=== PATIENT | female | born 1940 | race Caucasian/White ===

== ENCOUNTER 2021-06-17 09:57 | Emergency (ER) | payer OTHER ==
[~2021-06-17] VITALS: Ht 160 cm; Wt 52.0 kg
[2021-06-17] MEDS ORDERED: ondansetron/PF 4mg/2ml inj IV ONE ×3 (10:25→14:55)
[2021-06-17] MEDS ORDERED: normal saline 1000ML IV soln IVB ONE (10:25)
[2021-06-17 10:39] LABS: ALANINE AMINOTRANSFERASE 15 U/L (12-78); ALBUMIN 3.6 G/DL (3.4-5.0); ALBUMIN/GLOBULIN RATIO 0.9 (1.1-1.5); ALKALINE PHOSPHATASE 102 IU/L (46-116); ANION GAP 9 (8-16); ASPARTATE AMINO TRANSFERASE 22 U/L (10-37); BILIRUBIN,TOTAL 0.4 MG/DL (0.1-1.0); BLOOD UREA NITROGEN 16 MG/DL (7-18); BUN/CREATININE RATIO 20.8 (6.6-38.0); CALCIUM 9.3 MG/DL (8.5-10.1); CHLORIDE 104 MMOL/L (99-107); CREATININE 0.77 MG/DL (0.40-0.90); GLUCOSE 106 MG/DL (70-104); LIPASE 74 U/L (73-393); SODIUM 142 MMOL/L (135-145); TOTAL CARBON DIOXIDE 28.6 MMOL/L (24-32); TOTAL PROTEIN 7.4 G/DL (6.4-8.2); eGFR 72 ML/MIN
[2021-06-17 10:43] LABS: BASOPHILS # (AUTO) 0.1 X10'3 (0-0.2); BASOPHILS % (AUTO) 0.9 % (0-1); EOSINOPHILS # (AUTO) 0.1 X10'3 (0-0.9); EOSINOPHILS % (AUTO) 1.3 % (0-6); HEMATOCRIT 39.2 % (35.0-45.0); LYMPHOCYTES # (AUTO) 1.6 X10'3 (1.1-4.8); MEAN CORPUSCULAR HEMOGLOBIN 31.1 PG (27.0-31.0); MEAN CORPUSCULAR HGB CONC 33.1 g/dL (33.0-36.5); MEAN PLATELET VOLUME 7.8 FL (7.4-10.4); MONOCYTES # (AUTO) 0.6 X10'3 (0-0.9); NEUTROPHILS # (AUTO) 4.1 X10'3 (1.8-7.7); NEUTROPHILS % (AUTO) 63.8 % (42-75); PLATELET COUNT 276 X10'3 (140-440); RED BLOOD COUNT 4.18 X10'6 (4.20-5.60); RED CELL DISTRIBUTION WIDTH 14.2 % (11.5-14.5); WHITE BLOOD COUNT 6.4 X10'3 (4.5-11.0)
[2021-06-17 10:53] LABS: CLARITY,URINE CLEAR (Clear); COLOR,URINE YELLOW (Yellow); GLUCOSE, URINE NEGATIVE (Neg); KETONES,URINE NEGATIVE (Neg); LEUKOCYTE ESTERASE ,URINE NEGATIVE (Neg); NITRITES, URINE NEGATIVE (Neg); OCCULT BLOOD,URINE NEGATIVE (Neg); PH,URINE 6.5 (4.8-8.0); PROTEIN,URINE NEGATIVE (Neg); UROBILINOGEN,URINE 0.2 E.U/dL (0.2-1.0)
[2021-06-17 10:59] LABS: UA COLLECTION TYPE STRAIGHT CATH
[2021-06-17] MEDS: morphine 4 MG/ML inj SYRINge IV PRN ×2 (11:05→12:04)
[2021-06-17] MEDS ORDERED: morphine 4 MG/ML inj SYRINge IV PRN (11:50)
--- NOTE | 2021-06-17 11:51 | NUR ---
mri screening form faxed to [facility]ri, RN spoke to Rylie/poa/daughter to get info for mri.
--- NOTE | 2021-06-17 12:18 | NUR ---
patient to mri.
--- NOTE | 2021-06-17 14:47 | NUR ---
[facility] CALLED FOR TRANSPORT, SHORT ETA.
[2021-06-17 15:06] VITALS: BP 181/97
== END 2021-06-17 15:07 | disposition home or self-care (01) ==
LOC: ER 09:58
DX: R10.13 Epigastric pain (principal); R05.9 Cough, unspecified; R10.10 Upper abdominal pain, unspecified; M48.56XD Collapsed vertebra, not elsewhere classified, lumbar region, subsequent encounter for fracture with routine healing; F03.91 Unspecified dementia, unspecified severity, with behavioral disturbance; E03.9 Hypothyroidism, unspecified; I10 Essential (primary) hypertension; Z88.0 Allergy status to penicillin; Z88.2 Allergy status to sulfonamides
CPT/HCPCS: 36415; 71045; 72148; 74176; 80053; 81003; 83690; 85025; 96361; 96374; 96375; 96376; 99285; J2270; J2405; J7030; 99284

== ENCOUNTER 2021-07-16 18:40 | Emergency (ER) | payer OTHER ==
[~2021-07-16] VITALS: Ht 162.6 cm; Wt 59.0 kg
[2021-07-16] MEDS ORDERED: LIDOcaine 1% W/epiNEPHrine 1:200,000 10ml vial IJ ONE (20:40)
[2021-07-16] MEDS ORDERED: TETanus/Pertussis (Acell)/Diphther VAC/PF (Tdap-Adult) 0.5ml syringe IMVAC ONE (20:40)
[2021-07-16] MEDS ORDERED: LIDOcaine 1% W/epiNEPHrine 1:100,000 20ml vial IJ ONE (20:45)
[2021-07-17 00:21] VITALS: BP 146/80
== END 2021-07-17 07:25 | disposition home or self-care (01) ==
LOC: ER 18:41
DX: S01.01XA Laceration without foreign body of scalp, initial encounter (principal); F03.90 Unspecified dementia, unspecified severity, without behavioral disturbance, psychotic disturbance, mood disturbance, and anxiety; I10 Essential (primary) hypertension; E03.9 Hypothyroidism, unspecified; Z88.0 Allergy status to penicillin; Z88.1 Allergy status to other antibiotic agents; W18.30XA Fall on same level, unspecified, initial encounter; Z91.81 History of falling; Y93.89 Activity, other specified; Y92.89 Other specified places as the place of occurrence of the external cause; Y99.8 Other external cause status
CPT/HCPCS: 12001; 12002; 70450; 90460; 90471; 90715; 99284

== ENCOUNTER 2022-03-16 20:44 | Inpatient (IN) | payer OTHER ==
[~2022-03-16] VITALS: Ht 154.9 cm; Wt 48.0 kg
[2022-03-16] MEDS ORDERED: metoclopramide 5 mg/ml inj IV ONE (21:30)
[2022-03-16 21:39] LABS: CLARITY,URINE SLIGHTLY CLOUDY (Clear); COLOR,URINE YELLOW (Yellow); GLUCOSE, URINE NEGATIVE (Neg); KETONES,URINE NEGATIVE (Neg); LEUKOCYTE ESTERASE ,URINE SMALL (Neg); NITRITES, URINE NEGATIVE (Neg); OCCULT BLOOD,URINE NEGATIVE (Neg); PH,URINE 7.5 (4.8-8.0); PROTEIN,URINE NEGATIVE (Neg); UROBILINOGEN,URINE 0.2 E.U/dL (0.2-1.0)
[2022-03-16 21:40] LABS: BASOPHILS # (AUTO) 0.1 X10'3 (0-0.2); BASOPHILS % (AUTO) 1.1 % (0-1); EOSINOPHILS # (AUTO) 0.1 X10'3 (0-0.9); EOSINOPHILS % (AUTO) 0.7 % (0-6); HEMATOCRIT 43.1 % (35.0-45.0); HEMOGLOBIN 14.4 g/dl (12.0-16.0); LYMPHOCYTES # (AUTO) 1.7 X10'3 (1.1-4.8); LYMPHOCYTES % (AUTO) 20.4 % (21-51); MEAN CORPUSCULAR HEMOGLOBIN 31.8 PG (27.0-31.0); MEAN CORPUSCULAR HGB CONC 33.3 g/dL (33.0-36.5); MEAN CORPUSCULAR VOLUME 95.3 FL (78-98); MONOCYTES # (AUTO) 0.7 X10'3 (0-0.9); MONOCYTES % (AUTO) 8.5 % (2-12); NEUTROPHILS # (AUTO) 5.7 X10'3 (1.8-7.7); NEUTROPHILS % (AUTO) 69.3 % (42-75); PLATELET COUNT 200 X10'3 (140-440); RED BLOOD COUNT 4.52 X10'6 (4.20-5.60); RED CELL DISTRIBUTION WIDTH 14.5 % (11.5-14.5); WHITE BLOOD COUNT 8.3 X10'3 (4.5-11.0)
[2022-03-16 21:40] LABS: UA COLLECTION TYPE NON-SPECIFIED
[2022-03-16 21:45] LABS: HYALINE CASTS 0-3 /LPF (NEGATIVE)
[2022-03-16 21:46] LABS: WBC,URINE 50-100 /HPF (0-4)
[2022-03-16 21:47] LABS: SQUAMOUS EPITHELIAL CELL,UR MANY /LPF (FEW)
[2022-03-16 21:48] LABS: AMORPHOUS PHOSPHATES 1+; BACTERIA,URINE FEW /HPF (Neg)
--- NOTE | 2022-03-16 21:50 | NUR ---
PT OUT OF BED, PULLED IV OUT,
[2022-03-16 21:55] LABS: ALANINE AMINOTRANSFERASE 21 U/L (12-78); ALBUMIN 4.1 G/DL (3.4-5.0); ALKALINE PHOSPHATASE 72 IU/L (46-116); ANION GAP 8 (8-16); ASPARTATE AMINO TRANSFERASE 20 U/L (10-37); BILIRUBIN,TOTAL 0.2 MG/DL (0.1-1.0); BLOOD UREA NITROGEN 14 MG/DL (7-18); BUN/CREATININE RATIO 20.9 (6.6-38.0); CALCIUM 9.7 MG/DL (8.5-10.1); CHLORIDE 105 MMOL/L (99-107); CREATININE 0.67 MG/DL (0.40-0.90); GLUCOSE 112 MG/DL (70-104); POTASSIUM 3.9 MMOL/L (3.5-5.1); SODIUM 145 MMOL/L (135-145); TOTAL CARBON DIOXIDE 31.8 MMOL/L (24-32); TOTAL PROTEIN 8.1 G/DL (6.4-8.2); eGFR 85 ML/MIN
[2022-03-16] MEDS ORDERED: LORazepam 2 mg/ml vial IV ONE (22:00)
--- NOTE | 2022-03-16 22:00 | NUR ---
notifoed Dr Mcdonald and Dr Dunlap of [facility]
--- NOTE | 2022-03-16 22:02 | NUR ---
PT OUT OF BED AGAIN, REPORTS NOT WANTING ANY MEDICATIONS.
[2022-03-16 22:08] LABS: LIPASE 115 U/L (73-393); MAGNESIUM 2.1 MG/DL (1.5-2.4)
[2022-03-16] MEDS ORDERED: LORA10TA7 PO (22:40)
[2022-03-16] MEDS ORDERED: LOSA25TA96 PO ×2 (22:40→22:46)
[2022-03-16] MEDS ORDERED: CHOL20002 PO (22:40)
[2022-03-16] MEDS ORDERED: DIVA-74 PO (22:40)
[2022-03-16] MEDS ORDERED: SERT25TA PO (22:40)
[2022-03-16] MEDS ORDERED: OLAN5TAB5 PO (22:40)
[2022-03-16] MEDS ORDERED: ATOR10TA70 PO (22:40)
[2022-03-16 22:42] LABS: URINE AMPHETAMINE SCREEN NEGATIVE (Neg); URINE BARBITUATE SCREEN NEGATIVE (Neg); URINE BENZODIAZEPINES SCREEN NEGATIVE (Neg); URINE CANNABINOID SCREEN NEGATIVE (Neg); URINE COCAINE SCREEN NEGATIVE (Neg); URINE METHADONE SCREEN NEGATIVE (Neg); URINE OPIATE SCREEN NEGATIVE (Neg); URINE PHENCYCLIDINE SCREEN NEGATIVE (Neg)
[2022-03-16] MEDS ORDERED: ACET-3414 PO (22:46)
[2022-03-16] MEDS ORDERED: OXYB5TAB16 PO (22:46)
[2022-03-16] MEDS ORDERED: LIOT5TAB10 PO (22:46)
[2022-03-16] MEDS ORDERED: ATEN-169 PO (22:46)
[2022-03-16] MEDS ORDERED: SYN0.088T PO (22:46)
[2022-03-16] MEDS ORDERED: QUET25TA PO (22:46)
[2022-03-16] MEDS ORDERED: DONE10TA19 PO (22:46)
[2022-03-16] MEDS ORDERED: LORA-269 PO (22:46)
[2022-03-16] MEDS ORDERED: TRAM50TA2 PO (22:46)
[2022-03-16 23:05] LABS: D-DIMER 0.87 MG/L FEU (0-0.50)
[2022-03-16] MEDS ORDERED: iohexol 300mg/ml 100ml inj. ONE (23:05)
[2022-03-17] MEDS ORDERED: acetaminophen 650mg rectal suppository RC PRN (00:05)
[2022-03-17] MEDS ORDERED: magnesium hydroxide 30ml (MOM) UD suspension PO PRN (00:05)
[2022-03-17] MEDS ORDERED: ondansetron/PF 4mg/2ml inj IV PRN (00:05)
[2022-03-17] MEDS ORDERED: diphenhydrAMINE 25mg capsule PO PRN (00:05)
[2022-03-17] MEDS ORDERED: bisacodyl 10mg suppository rectal RC PRN (00:05)
[2022-03-17] MEDS ORDERED: diphenhydrAMINE 50 mg/ml inj IV PRN (00:05)
[2022-03-17] MEDS ORDERED: morphine 2 MG/ML inj. syringe IV PRN (00:05)
[2022-03-17] MEDS ORDERED: mag hydrox/Alum hydrox/simeth 30ml oral suspension PO PRN (00:05)
[2022-03-17] MEDS ORDERED: acetaminophen 325mg tablet PO PRN ×2 (00:05)
[2022-03-17] MEDS ORDERED: diazepam inj 5 MG/ML inj. IV PRN (00:15)
[2022-03-17] MEDS: dextrose 5%-1/2 normal saline 1,000 ML IV SCH ×2 (01:09→03:25)
[2022-03-17] MEDS ORDERED: LEVO50TA8 PO (03:05)
[2022-03-17] MEDS ORDERED: OLAN2.5T28 PO (03:14)
[2022-03-17] MEDS ORDERED: LORA-268 PO (03:18)
[2022-03-17 05:48] VITALS: BP 178/104
--- NOTE | 2022-03-17 06:39 | NUR ---
Patient in room PCU 3025. I have received report from Terence EPPERSON and had the opportunity to ask questions and assume patient care.
[2022-03-17 06:49] LABS: APTT 26 SECONDS (22-32)
[2022-03-17 07:26] LABS: CREATINE KINASE 43 U/L (26-192); PHOSPHORUS 3.2 MG/DL (2.3-4.5)
[2022-03-17 07:38] VITALS: BP 166/85
[2022-03-17] MEDS: carVEDilol 3.125mg tablet PO SCH ×2 (08:00→19:14)
[2022-03-17] MEDS ORDERED: nitroGLYCERIN 0.2mg/hour patch TD SCH (08:00)
[2022-03-17] MEDS: pantoprazole 40mg Tablet.DR PO SCH (08:27)
[2022-03-17] MEDS: atorvastatin 10mg tablet PO SCH (08:27)
[2022-03-17] MEDS: aspirin 81mg, enteric-coated 1 TAB TABLET.DR PO SCH (08:27)
[2022-03-17] MEDS: docusate sod 100mg capsule PO SCH ×2 (08:27→19:15)
[2022-03-17] MEDS: heparin, porcine 5000 units/ml vial SQ SCH ×2 (08:29→19:15)
[2022-03-17] MEDS: ondansetron 4mg rapidly disintigrating tab PO PRN ×2 (09:01→19:27)
[2022-03-17 09:03] LABS: VALPROATE 30 UG/ML (50-100)
[2022-03-17] MEDS: HYDROcodone/acetaminophen 5mg/325mg tablet PO PRN ×2 (09:07→19:14)
[2022-03-17 11:00] VITALS: BP 135/74
[2022-03-17 15:30] VITALS: BP 165/90
[2022-03-17 18:00] VITALS: BP 192/106
--- NOTE | 2022-03-17 18:42 | NUR ---
Patient in room U 3025. I have received report from ZEENAT REYES and had the opportunity to ask questions and assume patient care. Addendum: 03/17/22 at 1842 by Dina Mosley RN Amended: Links added.
--- NOTE | 2022-03-17 18:43 | NUR ---
Problems reprioritized. Patient report given, questions answered & plan of care reviewed with Dina EPPERSON.
[2022-03-17] MEDS ORDERED: temazepam 15mg capsule PO PRN (21:00)
[2022-03-17 23:30] VITALS: BP 169/82
--- NOTE | 2022-03-18 00:20 | NUR ---
PT AWOKE INC OF URINE BUT ASSISTED UP TO BEDSIDE COMMODE TO VOID. TOLERATED WELL THEN ASSISTED BACK INTO BED WHERE SHE THEN DOZED BACK OFF TO SLEEP.
[2022-03-18 06:00] VITALS: BP 180/98
[2022-03-18 06:20] LABS: BASOPHILS # (AUTO) 0.1 X10'3 (0-0.2); BASOPHILS % (AUTO) 1.4 % (0-1); EOSINOPHILS # (AUTO) 0.1 X10'3 (0-0.9); EOSINOPHILS % (AUTO) 1.9 % (0-6); HEMATOCRIT 42.4 % (35.0-45.0); HEMOGLOBIN 14.3 g/dl (12.0-16.0); LYMPHOCYTES # (AUTO) 1.8 X10'3 (1.1-4.8); LYMPHOCYTES % (AUTO) 34.6 % (21-51); MEAN CORPUSCULAR HEMOGLOBIN 31.6 PG (27.0-31.0); MEAN CORPUSCULAR HGB CONC 33.8 g/dL (33.0-36.5); MEAN CORPUSCULAR VOLUME 93.4 FL (78-98); MEAN PLATELET VOLUME 8.6 FL (7.4-10.4); MONOCYTES # (AUTO) 0.5 X10'3 (0-0.9); MONOCYTES % (AUTO) 9.3 % (2-12); NEUTROPHILS # (AUTO) 2.7 X10'3 (1.8-7.7); NEUTROPHILS % (AUTO) 52.8 % (42-75); PLATELET COUNT 196 X10'3 (140-440); RED BLOOD COUNT 4.54 X10'6 (4.20-5.60); RED CELL DISTRIBUTION WIDTH 14.3 % (11.5-14.5); WHITE BLOOD COUNT 5.1 X10'3 (4.5-11.0)
--- NOTE | 2022-03-18 06:40 | NUR ---
Problems reprioritized. Patient report given, questions answered & plan of care reviewed with ZEENAT ARCE. Addendum: 03/18/22 at 0708 by Dina Mosley RN Amended: Links added.
--- NOTE | 2022-03-18 06:45 | NUR ---
Patient in room PCU 0326J. I have received report from ZEENAT NIX and had the opportunity to ask questions and assume patient care.
[2022-03-18 06:48] LABS: ALANINE AMINOTRANSFERASE 23 U/L (12-78); ALBUMIN 3.9 G/DL (3.4-5.0); ALBUMIN/GLOBULIN RATIO 1.1 (1.1-1.5); ALKALINE PHOSPHATASE 69 IU/L (46-116); ANION GAP 10 (8-16); ASPARTATE AMINO TRANSFERASE 23 U/L (10-37); BILIRUBIN,TOTAL 0.5 MG/DL (0.1-1.0); BLOOD UREA NITROGEN 12 MG/DL (7-18); CALCIUM 9.4 MG/DL (8.5-10.1); CHLORIDE 103 MMOL/L (99-107); GLUCOSE 94 MG/DL (70-104); POTASSIUM 3.6 MMOL/L (3.5-5.1); SODIUM 145 MMOL/L (135-145); TOTAL CARBON DIOXIDE 31.7 MMOL/L (24-32); TOTAL PROTEIN 7.6 G/DL (6.4-8.2); eGFR 69 ML/MIN
--- NOTE | 2022-03-18 09:38 | NUR ---
Malnutrition consult; Pt admitted w/ nausea and vomiting, has hx of dementia per EMR. Pt denied any wt loss or decrease in appetite, though unsure of accuracy. She states that she does not like the food here and it makes here vomit, though she says that she likes all foods. Pt did not report any food preferences and declined drinks such as smoothies/shakes or ONS. Meal intake 0-25% of first 3 meals. No edema noted. Pt appears relatively appropriate for age. Likely that she has had some degree of poor PO intake though unable to get accurate information. Pt does not meet minimum criteria for malnutrition at this time. Addendum: 03/18/22 at [address] Amended: Links added.
[2022-03-18] MEDS: docusate sod 100mg capsule PO SCH (09:59)
[2022-03-18] MEDS: pantoprazole 40mg Tablet.DR PO SCH (09:59)
[2022-03-18 10:00] VITALS: BP 145/96
[2022-03-18] MEDS: aspirin 81mg, enteric-coated 1 TAB TABLET.DR PO SCH (10:00)
[2022-03-18] MEDS: atorvastatin 10mg tablet PO SCH (10:00)
[2022-03-18] MEDS: carVEDilol 3.125mg tablet PO SCH (10:00)
[2022-03-18] MEDS: heparin, porcine 5000 units/ml vial SQ SCH (11:28)
--- NOTE | 2022-03-18 15:04 | NUR ---
PATIENT STABLE AND APPROPRIATE FOR DISCHARGE, EDUCATION GIVEN, ALL BELONGINGS SENT WITH PATIENT, MIMI JESSICA BY [facility] AND STAFF
== END 2022-03-18 15:04 | disposition home or self-care (01) | DRG 392 ==
LOC: ER 20:45 → ED HOLD 03-17 00:11 → EDBEDREQ 03-17 02:06 → PCU 3S 03-17 03:45
PROVIDERS: ADMIT Family Medicine; ATTEND Internal Medicine
PROC: BW211ZZ Computerized Tomography (CT Scan) of Abdomen and Pelvis using Low Osmolar Contrast (ICD-10-PCS; principal; 2022-03-16)
DX: R10.9 Unspecified abdominal pain (principal); I50.32 Chronic diastolic (congestive) heart failure; M48.56XA Collapsed vertebra, not elsewhere classified, lumbar region, initial encounter for fracture; K57.90 Diverticulosis of intestine, part unspecified, without perforation or abscess without bleeding; K44.9 Diaphragmatic hernia without obstruction or gangrene; E03.9 Hypothyroidism, unspecified; E78.5 Hyperlipidemia, unspecified; F32.A Depression, unspecified; K86.89 Other specified diseases of pancreas; F02.80 Dementia in other diseases classified elsewhere, unspecified severity, without behavioral disturbance, psychotic disturbance, mood disturbance, and anxiety; I11.0 Hypertensive heart disease with heart failure; N28.1 Cyst of kidney, acquired; Z79.899 Other long term (current) drug therapy; Z87.891 Personal history of nicotine dependence; Z88.0 Allergy status to penicillin; Z88.2 Allergy status to sulfonamides
CPT/HCPCS: 36415; 70450; 71045; 74177; 80053; 80164; 80305; 81001; 82550; 83605; 83690; 83735; 83880; 84100; 84443; 84484; 85025; 85379; 85610; 85730; 87081; 93005; 93306; 97162; 97530; 99285; A6449; G0378; J1644; J2060; J2405; J2765; J7030; J7042; Q9967

== ENCOUNTER 2022-10-19 16:49 | Emergency (ER) | payer OTHER ==
[~2022-10-19] VITALS: Ht 160 cm; Wt 50.0 kg
[~2022-10-19 16:49] MED LIST: ACET-3414 PO; ATEN-169 PO; ATOR10TA70 PO; CHOL20002 PO; DIVA-74 PO; DONE10TA19 PO; LEVO50TA8 PO; LIOT5TAB10 PO; LORA-268 PO; LORA10TA7 PO; LOSA25TA96 PO; OLAN2.5T28 PO; OXYB5TAB16 PO; QUET25TA PO; SERT25TA PO; TRAM50TA2 PO
[2022-10-19 17:32] VITALS: BP 145/63
--- NOTE | 2022-10-19 19:13 | NUR ---
SPOKE WITH JOSE AT [facility] AND GAVE REPORT. PT AWAITING AMBULANCE FOR TRANSPORT BACK TO FACILITY WITHIN AN HOUR.
== END 2022-10-19 21:44 ==
LOC: ER 16:49
DX: S00.83XA Contusion of other part of head, initial encounter (principal); I10 Essential (primary) hypertension; E03.9 Hypothyroidism, unspecified; F03.90 Unspecified dementia, unspecified severity, without behavioral disturbance, psychotic disturbance, mood disturbance, and anxiety; Z79.899 Other long term (current) drug therapy; Z88.0 Allergy status to penicillin; Z88.2 Allergy status to sulfonamides; X58.XXXA Exposure to other specified factors, initial encounter; Y93.89 Activity, other specified; Y92.89 Other specified places as the place of occurrence of the external cause; Y99.8 Other external cause status; Z79.1 Long term (current) use of non-steroidal anti-inflammatories (NSAID)
CPT/HCPCS: 70450; 99284